=== PATIENT | female | born 1925 | race Caucasian/White ===

== ENCOUNTER 2017-08-08 22:02 | Inpatient (IN) ==
[2017-08-08] MEDS ORDERED: Ondansetron ODT 4 MG TAB.RAPDIS SL ONE (22:14)
--- NOTE | 2017-08-08 22:16 | Emergency Department Note ---
Disposition Clinical Impression: Elevated troponin, Left bundle branch block (LBBB) Fall Qualifiers: Encounter type: initial encounter Qualified Code(s): W19.XXXA - Unspecified fall, initial encounter Disposition: Admitted As Inpatient Condition: Good Instructions: Fall Prevention for Older Adults (ED) Reasons to Return/Additional Instructions: . Referrals: [facility] [Outside] Time of Disposition: 00:06 General Adult HPI - General Stated complaint: fall Time Seen by Provider: 08/08/17 22:05 Source: patient, EMS Limitations: no limitations Nursing Notes Reviewed: Yes Vital Signs Reviewed: Yes - History of Present Illness HPI Narrative: Patient is an 89-year-old female that presents emergency department via EMS after a fall. Patient states that she is having no pain at this time. Patient does state that when she fell she was trying to throw sweater onto her chair and she lost her balance and fell to the ground. She states that she did hit her head with no loss of consciousness and denies being on any blood thinners. Patient denies any numbness weakness or tingling or any pain at this time. Patient states that the reason for calling EMS was that she was unable to get up off the floor after she had fallen. Once she was up off the floor EMS offered to take her to the hospital so she decided that she should come be seen. Patient also reports some nausea but states that that started after she was riding in the back of the ambulance. - Related Data Home Medications Medication Instructions Recorded Confirmed Advair 250-50 Diskus 05/01/17 Amlodipine/Valsartan 05/01/17 Aspirin 05/01/17 Atorvastatin 05/01/17 Meclizine HCl 05/01/17 Nasonex 05/01/17 Restasis 05/01/17 05/01/17 Trospium Chloride 05/01/17 Previous Rx's Medication Instructions Recorded levoFLOXacin [Levaquin] 500 mg PO DAILY #10 tablet 05/01/17 predniSONE [PredniSONE] 0 mg PO DAILY #18 tablet 05/01/17 Allergies Allergy/AdvReac Type Severity Reaction Status Date / Time alcohol Allergy See Verified 05/01/17 15:19 Comments morphine Allergy Drowsy Verified 05/01/17 15:19 Opium (Anthroposophic) Allergy See Verified 05/01/17 15:19 Comments Penicillins [PCN] Allergy Gastrointestinal Verified 05/01/17 15:19 Upset codeine AdvReac Drowsy Verified 05/01/17 15:19 meperidine [From Demerol] AdvReac Drowsy Verified 05/01/17 15:19 OPIUM Allergy See Uncoded 05/01/17 15:19 Comments ANESTHESIA AdvReac See Uncoded 05/01/17 15:19 Comments All systems ED: reviewed and negative except as stated. Cardiovascular: Denies: chest pain Respiratory: Denies: dyspnea Gastrointestinal: Reports: nausea. 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 Absent: respiratory distress, wheezes - Cardiovascular Cardiovascular exam: Present: regular rate, normal rhythm, normal heart sounds, +S1, +S2 - Abdominal Exam Abdominal exam: Present: soft, Non-Tender, normal bowel sounds - Extremities Exam Extremities exam: Present: normal inspection, full ROM, other (2+ pitting edema in bilateral lower extremities). Absent: tenderness - Neurological Exam Neurological exam: Present: alert, oriented X3 - Psychiatric Psychiatric exam: Present: normal affect, normal mood - Skin Skin exam: Present: warm, dry, intact Course - Reevaluation(s) Reevaluation #1: Upon administration of the patient's ODT Zofran and she gagged and spit out the pill. So she did not persist receive an oral dose of Zofran. We will give her one IV dose here in the emergency department. Time: 22:45 Vital Signs Temperature 97.8 F 08/08/17 22:03 Pulse Rate 82 08/08/17 22:03 Respiratory Rate 16 08/08/17 22:03 Blood Pressure 169/105 08/08/17 22:03 O2 Sat by Pulse Oximetry 95 08/08/17 22:03 Temperature 97.8 F 08/08/17 22:03 Pulse Rate 100 08/08/17 22:58 Respiratory Rate 18 08/08/17 22:58 Blood Pressure 136/106 08/08/17 22:58 O2 Sat by Pulse Oximetry 93 08/08/17 22:58 Oxygen Delivery Oxygen Delivery Room Air Medical Decision Making - MDM Narrative Medical decision making narrative: Due to the patient presenting after a fall we will obtain a CBC, BMP, troponin and chest x-ray, EKG, x-ray of the pelvis, CT of the head and cervical spine to rule out possible fracture. Imaging was negative for acute fracture. CT scan did not show any evidence of a bleed. Patient does have an elevated troponin of 0.09. The remainder the patient's laboratory testing is unremarkable. The patient will need to be admitted to the hospital for her elevated troponin. I called and spoke with the hospitalist and they have accepted the patient to their service. The patient be admitted to the hospital for further evaluation and management. Consult cardiology has been placed. - Lab Data Lab results reviewed: Yes I reviewed the patient's lab results. Result diagrams: 08/08/17 22:20 08/08/17 22:20 Lab Results 08/08/17 08/08/17 Range/Units 22:20 22:20 WBC 7.5 (4.3-11.1) K/mcL RBC 3.74 L (3.82-4.97) M/mcL Hgb 12.4 (11.5-15.4) g/dL Hct 36.9 (35.3-44.9) % MCV 98.7 (83.0-100.0) fL MCH 33.2 (28.0-33.3) pg MCHC 33.6 (31.6-35.5) g/dL RDW 13.4 (11.5-14.5) % Plt Count 228 (140-400) K/mcL MPV 10.2 (9.4-12.4) fL Immature Gran % 0.5 (0-4) % Seg Neutrophils % 75.1 % Lymphocytes % 17.5 % Monocytes % 5.4 % Eosinophils % 1.1 % Basophils % 0.4 % Neutrophils # 5.6 (1.6-8.9) K/mcL Lymphocytes # 1.3 (0.6-4.6) K/mcL Monocytes # 0.4 (0.0-1.3) K/mcL Eosinophils # 0.1 (0.0-0.6) K/mcL Basophils # 0.0 (0.0-0.2) K/mcL Sodium 137 (136-145) mEq/L Potassium 3.6 (3.5-5.1) mEq/L Chloride 99 (98-107) mEq/L Carbon Dioxide 29 (23-29) mEq/L BUN 15 (8-23) mg/dL Creatinine 1.18 (0.60-1.20) mg/dL Est GFR ( Amer) 52 L (> 60) Est GFR (Non-Af Amer) 43 L (> 60) BUN/Creatinine Ratio 13 (6-26) Glucose 121 H (70-105) mg/dL Calculated Osmolality 286 (280-300) Calcium 8.9 (8.6-10.3) mg/dL Troponin I 0.09 H* (< 0.04) ng/mL - Radiology Data Radiology results reviewed: Yes I reviewed the patient's radiology results. Cervical Spine CT 08/08/17 22:12 IMPRESSION: Spondylosis with no definite fracture. D/ / Elmer Pan MD / Elmer Pan MD Interpreting Provider: Elmer Pan MD Chest X-Ray 08/08/17 22:12 IMPRESSION: Blunting of the right costophrenic angle, scarring versus pleural fluid. Otherwise, no acute abnormality detected. D/ / Medhat Arreola MD / Medhat Arreola MD Interpreting Provider: Medhat Arreola MD Head CT 08/08/17 22:12 IMPRESSION: No acute intracranial abnormality. D/ / Elmer Pan MD / Elmer Pan MD Interpreting Provider: Elmer Pan MD Pelvis X-Ray 08/08/17 22:12 IMPRESSION: Marked bony demineralization, which limits sensitivity for fracture detection. No acute abnormality detected. Severe bilateral hip degenerative disease, greater on the right. D/ / Medhat Arreola MD / Medhat Arreola MD Interpreting Provider: Medhat Arreola MD - EKG Data EKG #1 EKG attestation: Yes I reviewed and interpreted this EKG. EKG results narrative: EKG shows a sinus rhythm at a rate of 80 bpm, AL interval of 205, QRS duration of 138, QTc of 459 with a normal axis. Patient does have a left bundle-branch block present on EKG. There are some minor depressions in leads V5. The patient did have a previous EKG on 07/15/15 and the left bundle branch was present on this EKG. The depression in V5 seems to be new at this time.
[2017-08-08 22:34] LABS: Basophils % 0.4 %; Eosinophils # 0.1 K/mcL (0.0-0.6); Eosinophils % 1.1 %; Hematocrit 36.9 % (35.3-44.9); Hemoglobin 12.4 g/dL (11.5-15.4); Immature Granulocytes % 0.5 % (0-4); Lymphocytes # 1.3 K/mcL (0.6-4.6); Lymphocytes % 17.5 %; Mean Corpuscular HGB Conc 33.6 g/dL (31.6-35.5); Mean Corpuscular Hemoglobin 33.2 pg (28.0-33.3); Mean Corpuscular Volume 98.7 fL (83.0-100.0); Mean Platelet Volume 10.2 fL (9.4-12.4); Monocytes # 0.4 K/mcL (0.0-1.3); Monocytes % 5.4 %; Neutrophils # 5.6 K/mcL (1.6-8.9); Platelet Count 228 K/mcL (140-400); Red Blood Count 3.74 M/mcL (3.82-4.97); Red Cell Distribution Width 13.4 % (11.5-14.5); Segmented Neutrophils % 75.1 %
[2017-08-08] MEDS ORDERED: Ondansetron 4 MG/2 ML VIAL IVP ONE (22:44)
[2017-08-08 22:55] LABS: Calcium 8.9 mg/dL (8.6-10.3); Potassium 3.6 mEq/L (3.5-5.1)
[2017-08-08 22:58] LABS: Troponin I 0.09 ng/mL (< 0.04)
[2017-08-08] MEDS ORDERED: Aspirin 81 MG TAB.CHEW PO STA (22:58)
[2017-08-08] MEDS ORDERED: *HR* Heparin 5,000 UNIT/ML VIAL IVP ONE (23:31)
[2017-08-08] MEDS ORDERED: *HR* Heparin 5,000 UNIT/ML VIAL IVP PRN ×2 (23:31)
[2017-08-08] MEDS ORDERED: Heparin 25,000 UNIT/500 ML D5W 25,000 UNIT/500 ML BAG IVC SCH (23:45)
--- NOTE | 2017-08-08 23:46 | Emergency Department Note ---
Disposition Clinical Impression: Elevated troponin, Left bundle branch block (LBBB) Fall Qualifiers: Encounter type: initial encounter Qualified Code(s): W19.XXXA - Unspecified fall, initial encounter Disposition: Admitted As Inpatient Condition: Good Instructions: Fall Prevention for Older Adults (ED) Reasons to Return/Additional Instructions: Please follow up with your primary care provider at the next available appointment. I have provided information to the [facility]. Please return to the emergency department if you have any worsening of your symptoms including chest pain, shortness of breath, numbness, weakness, tingling , changes in mentation or any other symptoms that may be concerning to you. Referrals: [facility] [Outside] General Adult HPI - General Chief complaint: ED Dizziness Stated complaint: fall Time Seen by Provider: 08/08/17 22:05 Source: patient, EMS Limitations: no limitations - History of Present Illness Pain Scale: 1 - Related Data Home Medications Medication Instructions Recorded Confirmed Advair 250-50 Diskus 05/01/17 Amlodipine/Valsartan 05/01/17 Aspirin 05/01/17 Atorvastatin 05/01/17 Meclizine HCl 05/01/17 Nasonex 05/01/17 Restasis 05/01/17 05/01/17 Trospium Chloride 05/01/17 Previous Rx's Medication Instructions Recorded levoFLOXacin [Levaquin] 500 mg PO DAILY #10 tablet 05/01/17 predniSONE [PredniSONE] 0 mg PO DAILY #18 tablet 05/01/17 Allergies Allergy/AdvReac Type Severity Reaction Status Date / Time alcohol Allergy See Verified 05/01/17 15:19 Comments morphine Allergy Drowsy Verified 05/01/17 15:19 Opium (Anthroposophic) Allergy See Verified 05/01/17 15:19 Comments Penicillins [PCN] Allergy Gastrointestinal Verified 05/01/17 15:19 Upset codeine AdvReac Drowsy Verified 05/01/17 15:19 meperidine [From Demerol] AdvReac Drowsy Verified 05/01/17 15:19 OPIUM Allergy See Uncoded 05/01/17 15:19 Comments ANESTHESIA AdvReac See Uncoded 05/01/17 15:19 Comments Cardiovascular: Denies: chest pain Respiratory: Denies: dyspnea Gastrointestinal: Reports: nausea. 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 - Social History Smoking Status: Never smoker Smokeless Tobacco Status: No Alcohol use: Reports: none Drug use: Reports: none Physical Exam - General Limitations: no limitations General appearance: alert, in no apparent distress Course Vital Signs Temperature 97.8 F 08/08/17 22:03 Pulse Rate 82 08/08/17 22:03 Respiratory Rate 16 08/08/17 22:03 Blood Pressure 169/105 08/08/17 22:03 O2 Sat by Pulse Oximetry 95 08/08/17 22:03 Temperature 97.8 F 08/08/17 22:03 Pulse Rate 100 08/08/17 23:40 Respiratory Rate 18 08/08/17 23:40 Blood Pressure 123/75 08/08/17 23:40 O2 Sat by Pulse Oximetry 92 08/08/17 23:40 Oxygen Delivery Oxygen Delivery Room Air Medical Decision Making - Lab Data Result diagrams: 08/08/17 22:20 08/08/17 22:20 Lab Results 08/08/17 08/08/17 Range/Units 22:20 22:20 WBC 7.5 (4.3-11.1) K/mcL RBC 3.74 L (3.82-4.97) M/mcL Hgb 12.4 (11.5-15.4) g/dL Hct 36.9 (35.3-44.9) % MCV 98.7 (83.0-100.0) fL MCH 33.2 (28.0-33.3) pg MCHC 33.6 (31.6-35.5) g/dL RDW 13.4 (11.5-14.5) % Plt Count 228 (140-400) K/mcL MPV 10.2 (9.4-12.4) fL Immature Gran % 0.5 (0-4) % Seg Neutrophils % 75.1 % Lymphocytes % 17.5 % Monocytes % 5.4 % Eosinophils % 1.1 % Basophils % 0.4 % Neutrophils # 5.6 (1.6-8.9) K/mcL Lymphocytes # 1.3 (0.6-4.6) K/mcL Monocytes # 0.4 (0.0-1.3) K/mcL Eosinophils # 0.1 (0.0-0.6) K/mcL Basophils # 0.0 (0.0-0.2) K/mcL Sodium 137 (136-145) mEq/L Potassium 3.6 (3.5-5.1) mEq/L Chloride 99 (98-107) mEq/L Carbon Dioxide 29 (23-29) mEq/L BUN 15 (8-23) mg/dL Creatinine 1.18 (0.60-1.20) mg/dL Est GFR ( Amer) 52 L (> 60) Est GFR (Non-Af Amer) 43 L (> 60) BUN/Creatinine Ratio 13 (6-26) Glucose 121 H (70-105) mg/dL Calculated Osmolality 286 (280-300) Calcium 8.9 (8.6-10.3) mg/dL Troponin I 0.09 H* (< 0.04) ng/mL Attestation Statement - Attestation Attestation: I examined this patient and my medical decision-making was reviewed with the Resident Physician. I agree with the documented findings, disposition and treatment plan as described except to the extent set forth below. 89 year old female presents to the ED with complaints of fall today and has been previously experiencing fatigue and exertional dyspnea. Charles states she had to army crawl across her home to getthe phone to try and call the EMS to pick her off the ground. PAtient has an elevated troponin of 0.09 and has some new changes to her EKG with mild dperession in V5 and a mild elevtion <2 blocks to the anterior leads. WE will admitto medicine after trauma eval and treat with aspiriin
[2017-08-09 00:25] LABS: Hematocrit 37.4 % (35.3-44.9); Hemoglobin 12.4 g/dL (11.5-15.4); Mean Corpuscular HGB Conc 33.2 g/dL (31.6-35.5); Mean Corpuscular Hemoglobin 32.6 pg (28.0-33.3); Mean Corpuscular Volume 98.4 fL (83.0-100.0); Mean Platelet Volume 10.4 fL (9.4-12.4); Platelet Count 216 K/mcL (140-400); Red Cell Distribution Width 13.3 % (11.5-14.5)
[2017-08-09 00:30] LABS: Prothrombin Time 11.2 Seconds (9.4-12.1)
[2017-08-09 00:33] LABS: Activated Partial Thrombo Time 27.6 Seconds (26.0-36.0)
--- NOTE | 2017-08-09 00:43 | Internal Med History&Physical ---
Date of Encounter: 08/09/17 Time of Encounter: 00:38 Assessment and Plan (1) HTN (hypertension) Current visit: Yes Status: Chronic Chronic and well controlled we will resume home medication Qualifiers: Hypertension type: essential hypertension Qualified Code(s): I10 - Essential (primary) hypertension (2) CHF (congestive heart failure) Current visit: Yes Status: Acute No documented prior cardiac event will place on Lasix IV and obtain 2-D echo in a.m. Qualifiers: Heart failure type: unspecified Heart failure chronicity: acute Qualified Code(s): I50.9 - Heart failure, unspecified (3) Debility, unspecified Current visit: Yes Status: Acute Patient is very frail and weak we will consult aids social worker for placement evaluation (4) COPD (chronic obstructive pulmonary disease) Current visit: Yes Status: Chronic Chronic no active wheezing at present Qualifiers: COPD type: emphysema Emphysema type: unspecified Qualified Code(s): J43.9 - Emphysema, unspecified (5) Elevated troponin Current visit: Yes Status: Acute Patient denies any chest pain with transient troponin if significantly up order will consult cardiology patient does not appear to be a candidate for invasive intervention (6) Fall Current visit: Yes Status: Acute Accidental fall due to loss of balance images unremarkable no fractures Qualifiers: Encounter type: initial encounter Qualified Code(s): W19.XXXA - Unspecified fall, initial encounter (7) Left bundle branch block (LBBB) Current visit: Yes Status: Chronic Unchanged from previous EKG Internal Medicine - H&P: HPI Chief complaint: s/p fall Admitted From: Emergency Dept Plans for Post Hospital Care: Home History of present illness: Ms. Malhotra is a 89 year old female Patient with history of hypertension, COPD, high cholesterol, hypertension, patient had accidental fall at home she lost her balance and fell on the ground hitting her head no loss of consciousness no syncope denies any chest pain patient was unable to get of the floor called EMS and she will brought into the emergency room all the images was negative for any fracture on exam her troponin was 0.9 6 been admitted for possible non-STEMI. Patient denies any chest pain patient appears very frail and has difficulty just getteing into wheel chair to be transported upstair she is agreeable for possible placement to critical access hospital she requests EKG show LBBB not new has 2+ pitting edema BNP 20o so in addition to possible non-STEMI patient also has some congestive heart failure she be admitted for treatment Cardiologic consult social service evaluation for possible placement. Past Med Surg Social Fam HX - Past Medical History Medical history: arthritis, asthma, COPD, hyperlipidemia, hypertension, myocardial infarction, other Psychiatric history: anxiety - Past Surgical History Surgical History: appendectomy, cataract, cholecystectomy, other - Social History Smoking Status: Never smoker Smokeless Tobacco Status: No Alcohol use: none Drug use: none Internal Medicine - H&P: Meds Advair 250-50 Diskus 05/01/17 [History] Amlodipine/Valsartan 05/01/17 [History] Aspirin 05/01/17 [History] Atorvastatin 05/01/17 [History] Meclizine HCl 05/01/17 [History] Nasonex 05/01/17 [History] Restasis 05/01/17 [History] Trospium Chloride 05/01/17 [History] levoFLOXacin [Levaquin] 500 mg PO DAILY #10 tablet 05/01/17 [Rx] predniSONE [PredniSONE] 0 mg PO DAILY #18 tablet 05/01/17 [Rx] 3 Allergy/AdvReac Type Severity Reaction Status Date / Time alcohol Allergy See Verified 05/01/17 15:19 Comments morphine Allergy Drowsy Verified 05/01/17 15:19 Opium (Anthroposophic) Allergy See Verified 05/01/17 15:19 Comments Penicillins [PCN] Allergy Gastrointestinal Verified 05/01/17 15:19 Upset codeine AdvReac Drowsy Verified 05/01/17 15:19 meperidine [From Demerol] AdvReac Drowsy Verified 05/01/17 15:19 OPIUM Allergy See Uncoded 05/01/17 15:19 Comments ANESTHESIA AdvReac See Uncoded 05/01/17 15:19 Comments All Systems PM: A 10-system review of systems was performed and is negative for pertinent findings except as documented above in the HPI. - Constitutional Constitutional: fatigue, weakness - EENT Eyes: no change in vision, no discharge, no pain, no photophobia Ears: no ear discharge, no ear pain, no tinnitus Nose, mouth and throat: no dysphagia, no nasal discharge, no neck pain, no sore throat - Cardiovascular Cardiovascular ROS IM: no chest pain, no diaphoresis, no dyspnea, no lightheadedness, no palpitations, no syncope - Respiratory Respiratory: no cough, no dyspnea, no wheezing, no excessive phlegm production - Gastrointestinal Gastrointestinal: nausea, no abdominal pain, no diarrhea, no hematemesis, no hematochezia, no melena, no vomiting - Genitourinary Genitourinary: no change in urinary stream, no dysuria, no flank pain, no hematuria - Musculoskeletal Musculoskeletal ROS IM: other - Constitutional Vitals: Temp Pulse Resp BP Pulse Ox 97.8 F 100 16 157/94 92 08/08/17 22:03 08/08/17 23:40 08/09/17 00:16 08/09/17 00:16 08/08/17 23:40 General appearance: Present: mild distress - Eye Eye exam: Present: PERRL, conjuntiva pink, sclera anicteric Pupils: Present: PERRL - Neck Neck exam general surgery: Present: supple, trachea midline. Absent: lymphadenopathy - Respiratory Respiratory exam: Present: CTAB. Absent: accessory muscle use, rales, rhonchi, wheezes - Cardiovascular Cardiovascular exam: Present: systolic murmur - GI/Abdominal GI/Abdominal exam: Present: normal bowel sounds, soft, no peritoneal signs. Absent: distended, tenderness Internal Med - H&P Results - Labs CBC & Chem 7: 08/09/17 00:10 08/08/17 22:20 Labs: Short CBC 08/09/17 Range/Units 00:10 WBC 11.9 H D (4.3-11.1) K/mcL Hgb 12.4 (11.5-15.4) g/dL Hct 37.4 (35.3-44.9) % Plt Count 216 (140-400) K/mcL
[2017-08-09] MEDS ORDERED: Acetaminophen 325 MG TABLET PO PRN (00:56)
[2017-08-09] MEDS ORDERED: Naloxone 0.4 MG/ML INJ IVP PRN (00:56)
[2017-08-09 01:46] LABS: Hematocrit 35.9 % (35.3-44.9); Mean Corpuscular HGB Conc 33.4 g/dL (31.6-35.5); Mean Corpuscular Volume 98.6 fL (83.0-100.0); Mean Platelet Volume 10.3 fL (9.4-12.4); Platelet Count 208 K/mcL (140-400); Red Blood Count 3.64 M/mcL (3.82-4.97); Red Cell Distribution Width 13.3 % (11.5-14.5)
[2017-08-09] MEDS: Methyl Salicylate/Menthol 28 GM TUBE TP PRN ×2 (01:57→10:01)
[2017-08-09 02:06] LABS: Albumin 3.6 g/dL (3.5-5.7); Albumin/Globulin Ratio 1.8 (1.1-2.2); Bilirubin,Total 0.5 mg/dL (0.3-1.0); Calcium 8.7 mg/dL (8.6-10.3); Chol/HDL Ratio 1.9 (0-4.9); Magnesium 1.8 mg/dL (1.6-2.6); Potassium 3.7 mEq/L (3.5-5.1); Total Protein 5.6 g/dL (6.4-8.9)
[2017-08-09] MEDS ORDERED: *HR* Heparin 5,000 UNIT/ML VIAL IVP ONE (02:31)
[2017-08-09] MEDS ORDERED: *HR* Heparin 5,000 UNIT/ML VIAL IVP PRN ×2 (02:31)
[2017-08-09] MEDS ORDERED: Heparin 25,000 UNIT/500 ML D5W 25,000 UNIT/500 ML BAG IVC SCH (02:45)
[2017-08-09] MEDS ORDERED: *HR* Enoxaparin 40 MG/0.4 ML SYRINGE SQ SCH (06:00)
[2017-08-09 07:09] LABS: Bilirubin,Urine Negative (Negative); Blood,Urine Negative (Negative); Clarity,Urine Clear (Clear); Color,Urine Yellow (Yellow); Glucose,Urine (UA) Normal (Normal); Ketones,Urine Negative (Negative); Leukocyte Esterase,Urine Negative (Negative); Nitrite,Urine Negative (Negative); PH,Urine 6.5 pH Units (5.0-8.0); Protein,Urine Negative (Neg-Trace); Specific Gravity,Urine 1.018 (1.010-1.025); Urobilinogen,Urine Normal (Normal)
--- NOTE | 2017-08-09 08:22 | Cardiology Consult Note ---
Date of Encounter: 08/09/17 Time of Encounter: 10:33 Assessment and Plan (1) Elevated troponin Current Visit: Yes Status: Acute EKG shows ST changes in the precordial leads with possible depression in lead V5 , does not appear to be ischemic Troponin: 0.09, 0.63, 0.37 BNP was 200 CXR no signs of CHF Plan: - Heparin ACS protocol, continue pending echo results - Echo results pending - Patient states she does not want invasive measures, will continue with medically optimized therapy. Discussion w patient/family: The assessment and plan as outlined above was discussed with the patient and/or family members who expressed understanding and agreement. All questions were answered. Thank you for involving us in the care of your patient. Please call with any questions. History of Present Illness Consult date: 08/09/17 Requesting physician: Ambreen Villalta Consult reason: elevated troponin Chief complaint: Fall;KIERA History of present illness: Ms. Malhotra is a 89 year old female with a past medical history of COPD, HLD, HTN , and arthritis presenting yesterday to the emergency department status post fall. Cardiology was consulted for elevated troponins. The patient states that yesterday prior to going to bed the patient through her coat on to the bed and lost her balance and fell backwards hitting her head on a chair that was padded and landing on her buttocks. The patient states that the fall was from losing her balance. She states she is not able to get up right away and had to [employer] crawl to the phone to call for a squad. Patient denies any other associated symptoms prior to the fall. She states that she does feel short of breath, however this is a chronic issue and not new. She denies any chest pain , nausea, vomiting, palpitations prior to or after the fall. The patient states that she does have chronic lower extremity swelling which has been intermittent and ongoing issue. The patient denies any cardiac history contrary to her current medical record from her recent visit. She denies having a heart attack in the past. The patient states that she has had an echo of her heart done several years ago, and states that she was told the findings were normal. Past Med Surg Social Fam HX - Past Medical History Medical history: arthritis, asthma, COPD, hyperlipidemia, hypertension, myocardial infarction, other Psychiatric history: anxiety - Past Surgical History Surgical History: appendectomy, cataract, cholecystectomy, other - Social History Smoking Status: Never smoker Smokeless Tobacco Status: No Alcohol use: none Drug use: none Medications and Allergies Advair 250-50 Diskus 05/01/17 [History] Amlodipine/Valsartan 05/01/17 [History] Aspirin 05/01/17 [History] Atorvastatin 05/01/17 [History] Meclizine HCl 05/01/17 [History] Nasonex 05/01/17 [History] Restasis 05/01/17 [History] Trospium Chloride 05/01/17 [History] levoFLOXacin [Levaquin] 500 mg PO DAILY #10 tablet 05/01/17 [Rx] predniSONE [PredniSONE] 0 mg PO DAILY #18 tablet 05/01/17 [Rx] 3 Allergy/AdvReac Type Severity Reaction Status Date / Time alcohol Allergy See Verified 05/01/17 15:19 Comments morphine Allergy Drowsy Verified 05/01/17 15:19 Opium (Anthroposophic) Allergy See Verified 05/01/17 15:19 Comments Penicillins [PCN] Allergy Gastrointestinal Verified 05/01/17 15:19 Upset codeine AdvReac Drowsy Verified 05/01/17 15:19 meperidine [From Demerol] AdvReac Drowsy Verified 05/01/17 15:19 OPIUM Allergy See Uncoded 05/01/17 15:19 Comments ANESTHESIA AdvReac See Uncoded 05/01/17 15:19 Comments All Systems Review: The remainder of the systems were reviewed and are negative - Constitutional Constitutional: no fever(s), no weakness - Cardiovascular Cardiovascular: dyspnea on exertion, no chest pain at rest, no chest pain with exertion, no dyspnea at rest, no irregular heart rhythm, no radiating jaw, neck or arm pain, no lightheadedness, no palpitations, no rapid heart rate, no syncope - Respiratory Respiratory: dyspnea, no cough - Gastrointestinal Gastrointestinal: no abdominal pain, no nausea Physical Examination Vital Signs, Last 4 Hours Temp Pulse Resp BP Pulse Ox 08/09/17 06:30 99.1 F 70 14 133/76 93 General: Conversant, No Apparent Distress HEENT: Atraumatic, Normocephaly, Mucus Membranes Moist Neck: No JVD, Normal carotid pulses Cardiac: Reg Rate and Rhythm, Normal S1 and S2, No Murmur Lungs: Normal Breath Sounds, No Wheeze, Rales, Rhonchi Neuro: Alert and responsive, No focal deficits noted Abdomen: Soft, Non-Tender Skin: No rashes noted on visualized skin Musculoskeletal: No Chest Wall Tenderness Extremities: No Clubbing, No Cyanosis, No Edema, Normal Pulses Results 08/09/17 01:32 08/09/17 01:32 Lab Results 08/09/17 08/09/17 08/09/17 01:32 01:32 01:32 WBC 11.2 H Hgb 12.0 Hct 35.9 Plt Count 208 Sodium 137 Potassium 3.7 Chloride 101 Carbon Dioxide 28 BUN 15 Creatinine 1.07 Glucose 106 H Calcium 8.7 Magnesium 1.8 Total Bilirubin 0.5 AST 27 ALT 11 Alkaline Phosphatase 97 Troponin I 0.63 H* Consult Discharge Plan - Plan Additional Instructions: . Referrals: Gaviota Miramontes MD [Primary Care Provider] -
[2017-08-09] MEDS: Isosorbide MONOnitrate (24 HR) 30 MG TAB.ER.24H PO SCH (09:59)
[2017-08-09] MEDS: Aspirin 325 MG TABLET PO SCH (09:59)
[2017-08-09] MEDS: Furosemide 40 MG/4 ML VIAL IVP SCH (09:59)
--- NOTE | 2017-08-09 13:34 | Event Note ---
Date of Encounter: 08/09/17 Time of Encounter: 13:[address] changes in the precordial leads with possible depression in lead V5. Does not appear to be ischemic per cardiology note. Troponin 0.09, 0.63 and 0.37 respectively BNP 200 with no CHF on chest x-ray Heparin ACS protocol Echocardiogram with results pending Patient does not want invasive measures so we will continue medically optimize therapies. Patient is resting quietly in bed at this time she is alert and cooperative. She has no verbalize complaints.
--- NOTE | 2017-08-09 15:24 | Electrocardiograph Report ---
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
[2017-08-09] MEDS: traMADol 50 MG TABLET PO PRN (16:01)
[2017-08-10] MEDS: Ondansetron 4 MG/2 ML VIAL IVP PRN (04:08)
[2017-08-10 04:28] LABS: Basophils % 0.1 %; Hematocrit 33.8 % (35.3-44.9); Hemoglobin 11.4 g/dL (11.5-15.4); Immature Granulocytes % 0.4 % (0-4); Lymphocytes # 0.6 K/mcL (0.6-4.6); Lymphocytes % 8.1 %; Mean Corpuscular HGB Conc 33.7 g/dL (31.6-35.5); Mean Corpuscular Hemoglobin 33.1 pg (28.0-33.3); Mean Corpuscular Volume 98.3 fL (83.0-100.0); Mean Platelet Volume 10.8 fL (9.4-12.4); Monocytes # 0.3 K/mcL (0.0-1.3); Monocytes % 4.4 %; Neutrophils # 6.2 K/mcL (1.6-8.9); Platelet Count 204 K/mcL (140-400); Red Blood Count 3.44 M/mcL (3.82-4.97); Red Cell Distribution Width 13.4 % (11.5-14.5)
[2017-08-10 04:51] LABS: BUN/Creatinine Ratio 19 (6-26); Blood Urea Nitrogen 18 mg/dL (8-23); Calcium 8.6 mg/dL (8.6-10.3); Carbon Dioxide 31 mEq/L (23-29); Chloride 97 mEq/L (98-107); Glucose 110 mg/dL (70-105); Osmolality,Calculated 285 (280-300); Potassium 3.8 mEq/L (3.5-5.1); Sodium 136 mEq/L (136-145); eGFR For African Americans > 60 (> 60); eGFR For Non-African Americans 57 (> 60)
[2017-08-10] MEDS: Isosorbide MONOnitrate (24 HR) 30 MG TAB.ER.24H PO SCH (09:24)
[2017-08-10] MEDS: Aspirin 325 MG TABLET PO SCH (09:24)
[2017-08-10] MEDS: Furosemide 40 MG/4 ML VIAL IVP SCH (09:25)
[2017-08-10] MEDS: *HR* Promethazine 25 MG/ML VIAL IVP PRN (10:15)
[2017-08-10] MEDS: traMADol 50 MG TABLET PO PRN (10:20)
--- NOTE | 2017-08-10 11:56 | Internal Med Progress Note ---
Date of Encounter: 08/10/17 Time of Encounter: 11:55 - Assessment and plan (1) Debility, unspecified Current Visit: Yes Status: Acute Assessment and plan: PT and OT evaluation. 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 She denied and chest pain or discomfort with no history of CAD. She does not wish to pursue cardiac catheterization. She is not interested in invasive cardiac procedures given her advanced age. Cardiology recommends aspirin statin and beta joel therapy with nitroglycerin when necessary use for pain. She has lack of symptoms and normal LV function on echo. She can follow-up with cardiology as an outpatient and return to the hospital should she develop any chest pain or other concerning problems. (3) Fall Current Visit: Yes Status: Acute Assessment and plan: Fall precautions Qualifiers: Encounter type: initial encounter Qualified Code(s): W19.XXXA - Unspecified fall, initial encounter (4) COPD (chronic obstructive pulmonary disease) Current Visit: Yes Status: Chronic Assessment and plan: Patient is not exacerbated at this time will continue just home medication regime Qualifiers: COPD type: emphysema Emphysema type: unspecified Qualified Code(s): J43.9 - Emphysema, unspecified (5) HTN (hypertension) Current Visit: Yes Status: Chronic Assessment and plan: Pressure is stable continue home medications Qualifiers: Hypertension type: essential hypertension Qualified Code(s): I10 - Essential (primary) hypertension - Time Spent With Patient Total time spent is greater than 50% in coordination of care (as documented) at patient's floor/unit and/or counseling patient: - Subjective Interval history: Patient has no chest pain or shortness of breath but is complaining of nausea to the point that she feels like if she eats she is going to vomit. Overall she feels pretty good though. No dizziness headache abdominal pain fever chills or sweats. - Constitutional Vitals: Temp Pulse Resp BP Pulse Ox 97.6 F 63 16 139/70 90 08/10/17 11:41 08/10/17 11:41 08/10/17 11:41 08/10/17 11:41 08/10/17 11:41 General appearance: Present: cooperative, A&O X 3, pleasant, answers questions appropriately - Head Head exam: Present: atraumatic, normocephalic - Eye Eye exam: Present: PERRL, conjuntiva pink, sclera anicteric Pupils: Present: PERRL - Neck Neck exam general surgery: Present: supple, trachea midline. Absent: lymphadenopathy - Respiratory Respiratory exam: Present: decreased breath sounds, CTAB. Absent: accessory muscle use, rales, rhonchi, wheezes - Cardiovascular Cardiovascular exam: Present: RRR, +S1, +S2. Absent: diastolic murmur, gallop, rubs, systolic murmur - GI/Abdominal GI/Abdominal exam: Present: normal bowel sounds, soft, no peritoneal signs. Absent: distended, tenderness - Extremities Exam Extremities exam: Present: pedal edema, warm, radial pulses palpable and symmetrical. Absent: calf tenderness, cyanotic - Neurological Exam Neurological exam: Present: alert, CN II-XII intact, oriented X3, no focal deficits. Absent: pronater drift, facial droop, speech deficit - Skin Skin exam: Present: dry, normal color, warm Internal Medicine: Result - Labs CBC & Chem 7: 08/10/17 03:47 08/10/17 03:47 Labs: Short CBC 08/10/17 Range/Units 03:47 WBC 7.1 (4.3-11.1) K/mcL Hgb 11.4 L (11.5-15.4) g/dL Hct 33.8 L (35.3-44.9) % Plt Count 204 (140-400) K/mcL Neutrophils # 6.2 (1.6-8.9) K/mcL BMP 08/10/17 03:47 Sodium 136 Potassium 3.8 Chloride 97 L Carbon Dioxide 31 H BUN 18 Creatinine 0.93 Glucose 110 H Calcium 8.6 Cardiac Enzymes 08/09/17 Range/Units 14:30 Troponin I 0.26 H* (< 0.04) ng/mL - ABG Interpretation ABG results: PT/INR, D-dimer PT 11.2 Seconds (9.4-12.1) 08/09/17 00:10 Consult Discharge Plan - Plan Additional Instructions: . Referrals: Gaviota Miramontes MD [Primary Care Provider] -
[2017-08-11 06:36] LABS: Hematocrit 34.3 % (35.3-44.9); Hemoglobin 11.4 g/dL (11.5-15.4); Mean Corpuscular HGB Conc 33.2 g/dL (31.6-35.5); Mean Corpuscular Hemoglobin 32.3 pg (28.0-33.3); Mean Corpuscular Volume 97.2 fL (83.0-100.0); Mean Platelet Volume 10.9 fL (9.4-12.4); Platelet Count 208 K/mcL (140-400); Red Blood Count 3.53 M/mcL (3.82-4.97); Red Cell Distribution Width 13.6 % (11.5-14.5)
[2017-08-11 06:59] LABS: Calcium 8.6 mg/dL (8.6-10.3); Potassium 3.1 mEq/L (3.5-5.1)
--- NOTE | 2017-08-11 10:05 | Internal Med Progress Note ---
Date of Encounter: 08/11/17 Time of Encounter: 10:02 - Assessment and plan (1) Debility, unspecified Current Visit: Yes Status: Acute Assessment and plan: PT and OT evaluation. 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 She denied and chest pain or discomfort with no history of CAD. She does not wish to pursue cardiac catheterization. She is not interested in invasive cardiac procedures given her advanced age. Cardiology recommends aspirin statin and beta joel therapy with nitroglycerin when necessary use for pain. She has lack of symptoms and normal LV function on echo. She can follow-up with cardiology as an outpatient and return to the hospital should she develop any chest pain or other concerning problems. (3) Fall Current Visit: Yes Status: Acute Assessment and plan: Fall precautions Patient is a fall risk Qualifiers: Encounter type: initial encounter Qualified Code(s): W19.XXXA - Unspecified fall, initial encounter (4) COPD (chronic obstructive pulmonary disease) Current Visit: Yes Status: Chronic Assessment and plan: Patient not exacerbated at this time will continue just home medication regime Qualifiers: COPD type: emphysema Emphysema type: unspecified Qualified Code(s): J43.9 - Emphysema, unspecified (5) HTN (hypertension) Current Visit: Yes Status: Chronic Assessment and plan: Blood pressure is stable continue home medications Qualifiers: Hypertension type: essential hypertension Qualified Code(s): I10 - Essential (primary) hypertension (6) Rib pain on left side Current Visit: Yes Status: Acute Assessment and plan: Will obtain a rib x-ray of the left side and apply Lidoderm patch (7) Acute shoulder pain Current Visit: Yes Status: Acute Assessment and plan: Since falling at home, we will check a shoulder x-ray Qualifiers: Laterality: left Qualified Code(s): M25.512 - Pain in left shoulder - Time Spent With Patient Total time spent is greater than 50% in coordination of care (as documented) at patient's floor/unit and/or counseling patient: - Subjective Interval history: Patient has no chest pain or shortness of breath but complains of left rib cage pain with inspiration and states cannot move her arm without a great deal shoulder pain. She states her nausea is much better today and she has not had any feelings of vomiting today. She also elaborates that she is not able to go home and needs to be placed. - Constitutional Vitals: Temp Pulse Resp BP Pulse Ox 99.3 F 61 14 126/62 92 08/11/17 07:16 08/11/17 07:16 08/11/17 07:16 08/11/17 07:16 08/11/17 07:16 General appearance: Present: cooperative, A&O X 3, pleasant, answers questions appropriately - Head Head exam: Present: atraumatic, normocephalic - Eye Eye exam: Present: PERRL, conjuntiva pink, sclera anicteric Pupils: Present: PERRL - Neck Neck exam general surgery: Present: supple, trachea midline. Absent: lymphadenopathy - Respiratory Respiratory exam: Present: chest wall tenderness, decreased breath sounds. Absent: accessory muscle use, rales, rhonchi, wheezes Additional comments: Poor inspiratory effort secondary to rib cage pain - Cardiovascular Cardiovascular exam: Present: RRR, +S1, +S2. Absent: diastolic murmur, gallop, rubs, systolic murmur - GI/Abdominal GI/Abdominal exam: Present: normal bowel sounds, soft, no peritoneal signs. Absent: distended, tenderness - Extremities Exam Extremities exam: Present: warm, radial pulses palpable and symmetrical. Absent : calf tenderness, cyanotic, pedal edema - Neurological Exam Neurological exam: Present: alert, CN II-XII intact, oriented X3, no focal deficits. Absent: pronater drift, facial droop, speech deficit - Skin Skin exam: Present: dry, intact, normal color, warm Additional comments: Bruise on left forearm Internal Medicine: Result - Labs CBC & Chem 7: 08/11/17 05:36 08/11/17 05:36 Labs: Short CBC 08/11/17 Range/Units 05:36 WBC 6.1 (4.3-11.1) K/mcL Hgb 11.4 L (11.5-15.4) g/dL Hct 34.3 L (35.3-44.9) % Plt Count 208 (140-400) K/mcL BMP 08/11/17 05:36 Sodium 136 Potassium 3.1 L Chloride 95 L Carbon Dioxide 33 H BUN 23 Creatinine 1.25 H Glucose 78 Calcium 8.6 - ABG Interpretation ABG results: PT/INR, D-dimer PT 11.2 Seconds (9.4-12.1) 08/09/17 00:10 Consult Discharge Plan - Plan Additional Instructions: . Referrals: Gaviota Miramontes MD [Primary Care Provider] -
[2017-08-11] MEDS: Aspirin 325 MG TABLET PO SCH (10:06)
[2017-08-11] MEDS: Isosorbide MONOnitrate (24 HR) 30 MG TAB.ER.24H PO SCH (10:06)
[2017-08-11] MEDS: Furosemide 40 MG/4 ML VIAL IVP SCH (10:06)
[2017-08-11] MEDS: traMADol 50 MG TABLET PO PRN (21:02)
[2017-08-12 05:15] LABS: Hematocrit 34.5 % (35.3-44.9); Hemoglobin 11.6 g/dL (11.5-15.4); Mean Corpuscular HGB Conc 33.6 g/dL (31.6-35.5); Mean Corpuscular Hemoglobin 32.8 pg (28.0-33.3); Mean Corpuscular Volume 97.5 fL (83.0-100.0); Mean Platelet Volume 10.9 fL (9.4-12.4); Platelet Count 224 K/mcL (140-400); Red Blood Count 3.54 M/mcL (3.82-4.97); Red Cell Distribution Width 13.4 % (11.5-14.5)
[2017-08-12 05:32] LABS: BUN/Creatinine Ratio 25 (6-26); Blood Urea Nitrogen 25 mg/dL (8-23); Calcium 8.6 mg/dL (8.6-10.3); Carbon Dioxide 32 mEq/L (23-29); Chloride 95 mEq/L (98-107); Glucose 85 mg/dL (70-105); Osmolality,Calculated 286 (280-300); Potassium 3.6 mEq/L (3.5-5.1); Sodium 136 mEq/L (136-145); eGFR For African Americans > 60 (> 60); eGFR For Non-African Americans 52 (> 60)
[2017-08-12] MEDS: Aspirin 325 MG TABLET PO SCH (08:25)
[2017-08-12] MEDS: Ondansetron 4 MG/2 ML VIAL IVP PRN (08:26)
[2017-08-12] MEDS: Isosorbide MONOnitrate (24 HR) 30 MG TAB.ER.24H PO SCH (08:26)
[2017-08-12] MEDS: Furosemide 40 MG/4 ML VIAL IVP SCH (08:26)
[2017-08-12] MEDS: traMADol 50 MG TABLET PO PRN (08:36)
[2017-08-12] MEDS ORDERED: *HR* OxyCODONE Immed Rel 5 MG TABLET PO PRN (11:40)
[2017-08-12 11:56] VITALS: BP 128/79
[2017-08-12] MEDS: *HR* Promethazine 25 MG/ML VIAL IVP PRN (12:31)
--- NOTE | 2017-08-12 12:48 | Discharge Summary ---
- NOTES TO OUTPATIENT PROVIDER Notes to Outpatient Provider: Patient to follow-up with her primary care physician in one week, S/P fall with left rib fracture and left shoulder pain with arthritis on xray. Patient to follow-up with her orthopedic surgeon regarding her right hip and knee pain. Also right carpal tunnel complaints Date of Encounter: 08/12/17 Time of Encounter: 12:42 - Discharge Diagnosis (1) Debility, unspecified Priority: Primary Status: Acute Assessment and Plan: PT and OT evaluation. [facility] (2) Elevated troponin Priority: Primary Status: Acute Assessment and Plan: Cardiology evaluated the patient and impression on mild troponin elevation is unclear significance. She denied and chest pain or discomfort with no history of CAD. She does not wish to pursue cardiac catheterization. She is not interested in invasive cardiac procedures given her advanced age so declined intervention. Cardiology recommends aspirin statin and beta joel therapy with nitroglycerin when necessary use for pain. She has lack of symptoms and normal LV function on echo. She can follow-up with cardiology as an outpatient and return to the hospital should she develop any chest pain or other concerning problems. (3) Fall Priority: Primary Status: Acute Assessment and Plan: Fall precautions, Patient remains a fall risk Qualifiers: Encounter type: initial encounter Qualified Code(s): W19.XXXA - Unspecified fall, initial encounter (4) COPD (chronic obstructive pulmonary disease) Priority: Primary Status: Chronic Assessment and Plan: Patient not exacerbated at this time, will continue home medication regime Qualifiers: COPD type: emphysema Emphysema type: unspecified Qualified Code(s): J43.9 - Emphysema, unspecified (5) HTN (hypertension) Priority: Primary Status: Chronic Assessment and Plan: Blood pressure is stable, continue home medications Qualifiers: Hypertension type: essential hypertension Qualified Code(s): I10 - Essential (primary) hypertension (6) Rib pain on left side Priority: Primary Status: Acute Assessment and Plan: rib x-ray of the left side revealed 7th and 8th rib fracture laterally and applied Lidoderm patch (7) Acute shoulder pain Priority: Primary Status: Acute Assessment and Plan: Since falling at home, a shoulder x-ray was reviewed which shows chronic degenerative changes in the left shoulder with no acute abnormality. Chronic degenerative changes are seen at the left before meals joint. Progressive degenerative changes also at the humeral head. No acute fracture or dislocation and no significant soft tissue findings. Qualifiers: Laterality: left Qualified Code(s): M25.512 - Pain in left shoulder (8) Right hip pain Priority: Primary Status: Acute Assessment and Plan: Acute on chronic right hip and knee pain. Patient states she follows with Dr. Sanchez and needs hip surgery which has not been able to be done secondary to scheduling conflicts she utilizes ice and heat at home. Will add a low-dose narcotic dosing as this is likely flared up from her recent fall. She utilizes ice and/or heat at home so that will be ordered. She was reporting pain that could not be tolerated and with the nurse went back with new pain med order the patient was found asleep. When she awoke she stated she was going to vomit because the pain was so bad. Pain complaints seem to be out of context with presentation. Question if related to patient would like to stay and not go to the [facility] facility. (9) Hypokalemia Priority: Primary Status: Resolved Assessment and Plan: Replaced and normalized (10) Left rib fracture Priority: Primary Status: Acute Assessment and Plan: see above Qualifiers: Encounter type: initial encounter Rib fracture type: multiple ribs Fracture type: closed Qualified Code(s): S22.42XA - Multiple fractures of ribs , left side, initial encounter for closed fracture Hospital course: Ms. Malhotra is a 89 year old female with a history of hypertension, COPD, high cholesterol, hypertension, accidental fall, arthritis, NC, anxiety disorder, and asthma. She presented to the emergency room status post fall when she lost her balance and fell to the ground hitting her head with no loss of consciousness or syncope. She denied any chest pain. EMS brought her into the emergency room. Troponin was elevated at 0.96 and trended down. She was admitted for possible non-STEMI NC with a cardiology consult. After long discussion with cardiology she declined any further Cardiologic workup and decided for medical management. She also had left-sided rib cage pain and a rib x-ray revealed seventh and eighth non-displaced rib fracture. Left shoulder pain was increased so shoulder x-ray was obtained that showed degenerative changes but no acute processes and no soft tissue damage. She is also claiming of increased right hip and knee pain. This is from chronic arthritis and she states that she was to have a hip replacement that has been unable to fit into her schedule with some family issues. She became very agitated and tearful when told that she could be transferred to [facility] today. She stated she could not go secondary to her pain. Stronger pain medication was ordered and when the nurse went to administer it she was asleep in the bed. On awakening she stated she was nauseated and the pain was terrible. She had tolerated her breakfast without any difficulty. It seems that she does not want to go to skilled facility. Discussed modalities for pain control and she will be going to [facility] today. She will follow-up with cardiology as an outpatient as well as Dr. Sanchez for her chronic hip pain. Vital signs are stable and afebrile. She satting in the mid 90s on room air. CHF is not exacerbated and she has no further chest pain just some rib cage pain with deep breathing that has improved with the Lidoderm patch. Discharge discussed with: patient, nurse, social work, case management - Time Spent with Patient Total time spent providing and/or coordinating discharge services: Less than 30 minutes - Discharge Medications Prescriptions: OxyCODONE Immed Rel [Roxicodone 5 MG] 5 mg PO Q4HR PRN 5 Days #20 tablet PRN Reason: Pain Ondansetron ODT [Zofran ODT] 4 mg SL Q6HR PRN #10 tab.rapdis PRN Reason: Nausea Potassium Chloride 10 meq PO DAILY #30 tab.er.prt Home Medications: Albuterol Sulfate [Ventolin Hfa] 2 puff IH Q4H PRN 08/09/17 [History] Atorvastatin Calcium [Lipitor] 20 mg PO DAILY 08/09/17 [History] Cyclosporine [Restasis] 1 drop OP BID 08/09/17 [History] Diclofenac Sodium [Voltaren] 1 appl TP QID PRN 08/09/17 [History] Fluticasone Propionate Nasal [Flonase] 2 spray NS DAILY 08/09/17 [History] Fluticasone/Salmeterol [Advair 250-50 Diskus] 1 puff IH BID 08/09/17 [History] Furosemide [Lasix] 20 mg PO DAILY 08/09/17 [History] Polyethylene Glycol 3350 [Purelax] 17 gm PO DAILY 08/09/17 [History] Trospium Chloride 20 mg PO BID 08/09/17 [History] hydroCHLOROthiazide [Hydrochlorothiazide] 25 mg PO DAILY 08/09/17 [History] Acetaminophen [Tylenol] 650 mg PO Q6HR PRN tablet 08/12/17 [Rx] Aspirin 325 mg PO DAILY tablet 08/12/17 [Rx] Isosorbide MONOnitrate (24 HR) [Imdur] 30 mg PO DAILY tab.er.24h 08/12/17 [Rx] Lidocaine Patch [Lidoderm 5% patch] 1 each TP DAILY adh..patch 08/12/17 [Rx] Methyl Salicylate/Menthol [Bengay] 1 appl TP BID PRN tube 08/12/17 [Rx] Metoprolol [Lopressor] 25 mg PO BID tablet 08/12/17 [Rx] Ondansetron ODT [Zofran ODT] 4 mg SL Q6HR PRN #10 tab.rapdis 08/12/17 [Rx] OxyCODONE Immed Rel [Roxicodone 5 MG] 5 mg PO Q4HR PRN 5 Days #20 tablet [Rx] Potassium Chloride 10 meq PO DAILY #30 tab.er.prt 08/12/17 [Rx] Allergies/Adverse Reactions: 3 Allergy/AdvReac Type Severity Reaction Status Date / Time alcohol Allergy See Verified 05/01/17 15:19 Comments morphine Allergy Drowsy Verified 05/01/17 15:19 Opium (Anthroposophic) Allergy See Verified 05/01/17 15:19 Comments Penicillins [PCN] Allergy Gastrointestinal Verified 05/01/17 15:19 Upset codeine AdvReac Drowsy Verified 05/01/17 15:19 meperidine [From Demerol] AdvReac Drowsy Verified 05/01/17 15:19 OPIUM Allergy See Uncoded 05/01/17 15:19 Comments ANESTHESIA AdvReac See Uncoded 05/01/17 15:19 Comments Date of admission: 08/09/17 00:56 Primary care physician: Gaviota Miramontes Consults: 08/09/17 00:59 Consult to Dent Remover (W&C) [CONS] Routine Reason For Exam: Reason for SW Consult: evaluate for placement 08/09/17 09:10 Consult to Nurse Navigator [CONS] Routine Comment: chf 08/09/17 09:48 Consult to Physical Therapy [CONS] Routine Comment: Evaluate, develop and implement POC Reason for Consult: ecf Does patient have active BEDREST order?: No Is patient medically & hemodynamically stable?: Yes Patient assessed for mobility or mobilized this visit?: Yes 08/09/17 09:49 Consult to Occupational Therapy [CONS] Routine Comment: Evaluate, develop and implement POC Reason for Consult: ecf Does patient have active BEDREST order?: Yes Is patient medically & hemodynamically stable?: Yes Patient assessed for mobility or mobilized this visit?: Yes Discharging clinician: Vanessa Wren Anticipated date of discharge: 08/12/17 - Constitutional Vitals: Temp Pulse Resp BP Pulse Ox 97.9 F 62 16 128/79 92 08/12/17 11:54 08/12/17 11:54 08/12/17 11:54 08/12/17 11:54 08/12/17 11:54 General appearance: Present: cooperative, A&O X 3, no acute distress, answers questions appropriately - Head Head exam: Present: atraumatic, normocephalic - Eye Eye exam: Present: PERRL, conjuntiva pink, sclera anicteric Pupils: Present: PERRL - Neck Neck exam general surgery: Present: supple, trachea midline. Absent: lymphadenopathy - Respiratory Respiratory exam: Present: chest wall tenderness, decreased breath sounds, CTAB. Absent: accessory muscle use, rales, rhonchi, wheezes Additional comments: Poor inspiratory effort secondary to pain on deep inspiration with rib fracture - Cardiovascular Cardiovascular exam: Present: RRR, +S1, +S2. Absent: diastolic murmur, gallop, rubs, systolic murmur - GI/Abdominal GI/Abdominal exam: Present: normal bowel sounds, soft, no peritoneal signs. Absent: distended, tenderness - Extremities Exam Extremities exam: Present: warm, radial pulses palpable and symmetrical. Absent : calf tenderness, cyanotic, pedal edema - Neurological Exam Neurological exam: Present: alert, CN II-XII intact, oriented X3, no focal deficits. Absent: pronater drift, facial droop, speech deficit - Skin Skin exam: Present: dry, intact, normal color, warm - Patient Status Disposition: Transfer SNF Condition: Good Functional capacity at discharge: uses cane/walker Overall status at discharge: patient is progressing back to baseline - Discharge Instructions Follow Up With: Gaviota Miramontes MD [Primary Care Provider] - Additional Instructions: . - Diet and Activity Activity: as per physical therapy, increase activity as tolerated Diet: advance to your usual diet, low fat, low cholesterol, low salt diet
--- NOTE | 2017-08-12 13:22 | Physician Discharge Referral ---
ExtendedCare Referral Info Transfer To: [facility] Provider in Charge: nahid diane - Diagnosis (1) Debility, unspecified Priority: Primary Status: Acute (2) Elevated troponin Priority: Primary Status: Acute (3) Fall Priority: Primary Status: Acute (4) COPD (chronic obstructive pulmonary disease) Priority: Primary Status: Chronic (5) HTN (hypertension) Priority: Primary Status: Chronic (6) Rib pain on left side Priority: Primary Status: Acute (7) Acute shoulder pain Priority: Primary Status: Acute (8) Right hip pain Priority: Primary Status: Acute (9) Hypokalemia Priority: Primary Status: Resolved (10) Left rib fracture Priority: Primary Status: Acute - Transfer Medications Prescriptions: OxyCODONE Immed Rel [Roxicodone 5 MG] 5 mg PO Q4HR PRN 5 Days #20 tablet PRN Reason: Pain Ondansetron ODT [Zofran ODT] 4 mg SL Q6HR PRN #10 tab.rapdis PRN Reason: Nausea Potassium Chloride 10 meq PO DAILY #30 tab.er.prt Home Medications: Albuterol Sulfate [Ventolin Hfa] 2 puff IH Q4H PRN 08/09/17 [History] Atorvastatin Calcium [Lipitor] 20 mg PO DAILY 08/09/17 [History] Cyclosporine [Restasis] 1 drop OP BID 08/09/17 [History] Diclofenac Sodium [Voltaren] 1 appl TP QID PRN 08/09/17 [History] Fluticasone Propionate Nasal [Flonase] 2 spray NS DAILY 08/09/17 [History] Fluticasone/Salmeterol [Advair 250-50 Diskus] 1 puff IH BID 08/09/17 [History] Furosemide [Lasix] 20 mg PO DAILY 08/09/17 [History] Polyethylene Glycol 3350 [Purelax] 17 gm PO DAILY 08/09/17 [History] Trospium Chloride 20 mg PO BID 08/09/17 [History] hydroCHLOROthiazide [Hydrochlorothiazide] 25 mg PO DAILY 08/09/17 [History] Acetaminophen [Tylenol] 650 mg PO Q6HR PRN tablet 08/12/17 [Rx] Aspirin 325 mg PO DAILY tablet 08/12/17 [Rx] Isosorbide MONOnitrate (24 HR) [Imdur] 30 mg PO DAILY tab.er.24h 04/23/18 [Rx] Lidocaine Patch [Lidoderm 5% patch] 1 each TP DAILY adh..patch 08/12/17 [Rx] Methyl Salicylate/Menthol [Bengay] 1 appl TP BID PRN tube 08/12/17 [Rx] Metoprolol [Lopressor] 25 mg PO BID tablet 08/12/17 [Rx] Ondansetron ODT [Zofran ODT] 4 mg SL Q6HR PRN #10 tab.rapdis 08/12/17 [Rx] OxyCODONE Immed Rel [Roxicodone 5 MG] 5 mg PO Q4HR PRN 5 Days #20 tablet [Rx] Potassium Chloride 10 meq PO DAILY #30 tab.er.prt 08/12/17 [Rx] Allergies/Adverse Reactions: 3 Allergy/AdvReac Type Severity Reaction Status Date / Time alcohol Allergy See Verified 05/01/17 15:19 Comments morphine Allergy Drowsy Verified 05/01/17 15:19 Opium (Anthroposophic) Allergy See Verified 05/01/17 15:19 Comments Penicillins [PCN] Allergy Gastrointestinal Verified 05/01/17 15:19 Upset codeine AdvReac Drowsy Verified 05/01/17 15:19 meperidine [From Demerol] AdvReac Drowsy Verified 05/01/17 15:19 OPIUM Allergy See Uncoded 05/01/17 15:19 Comments ANESTHESIA AdvReac See Uncoded 05/01/17 15:19 Comments - Respiratory Orders None Smoking Cessation: Smoking cessation has been advised. For more information, call the [place] Tobacco Quit Line at 6-550-PTBX-NOW. - Advance Directives Living Will: Yes Power of Motor Brakeman: Yes Code Status: Full Code - Mobility Orders Ambulate - Rehabiliation Orders Rehab Potential: Fair Rehab Orders: Evaluation for Physical Therapy, Evaluation for Occupational Therapy - Diet Orders No Added Salt (KYLER), Cardiac CERTIFICATION: I certify that the transfer of the above named patient to an Extended Care Facility is necessary for the continuing treatment of the diagnosis listed. The above information is true and accurate reflection of patient's current condition. Confidential - Redisclosure prohibited without a patient's written consent.
== END 2017-08-12 17:32 | DRG 185 ==
LOC: 3BNU 22:02 → EMEROO 22:02 → 3BNU 08-09 00:16
PROVIDERS: ADMIT Internal Medicine Cardiovascular Disease; ATTEND Internal Medicine Cardiovascular Disease